=== PATIENT | female | born 1945 | race Native Hawaiian/Other Pacific Islander ===

== ENCOUNTER 2022-01-04 12:55 | Emergency (ER) | payer OTHER ==
[~2022-01-04] VITALS: Ht 162.6 cm; Wt 51.7 kg
[2022-01-04 12:55] VITALS: BP 126/67; TEMP 97.6
[2022-01-04 13:42] LABS: PLATELET COUNT 175 K/uL (152-353)
[2022-01-04 13:57] LABS: POTASSIUM 3.7 mmol/L (3.6-5.2)
[2022-01-04] MEDS ORDERED: DIPH25CA90 PO (17:38)
[2022-01-04] MEDS ORDERED: NICOTINE T21 MG/241 TD (17:46)
[2022-01-04] MEDS ORDERED: QUETIAPINE100 MG PO (17:47)
[2022-01-04] MEDS ORDERED: QUETIAPINE50 MG PO (17:48)
[2022-01-04] MEDS ORDERED: JUVE1 PO (17:50)
[2022-01-04] MEDS ORDERED: LISI10TA11 PO (17:50)
[2022-01-04] MEDS ORDERED: PRO-STAT PO (17:55)
== END 2022-01-04 15:21 | disposition still patient (30) ==
LOC: ED 12:55
PROVIDERS: Emergency Medicine Emergency Medical Services
DX: F03.91 Unspecified dementia, unspecified severity, with behavioral disturbance (principal); Z11.52 Encounter for screening for COVID-19; Z04.6 Encounter for general psychiatric examination, requested by authority
CPT/HCPCS: 80053; 85027; 87635; 93005; 99283; U0003